=== PATIENT | female | born 1940 | race Caucasian/White ===

== ENCOUNTER 2020-03-24 15:48 | Inpatient (IN) ==
[2020-03-24] MEDS ORDERED: PANTOprazole 40 MG in SYRINGE 0 ML IV ONE (16:26)
[2020-03-24] MEDS ORDERED: FAMOTIDINE 20MG IV PUSH 20 MG/5 ML SYR IV STA (16:26)
[2020-03-24] MEDS ORDERED: ONDANSETRON INJ 2 MG/ML 2 ML VIAL IV STA ×2 (16:26→19:24)
[2020-03-24] MEDS ORDERED: SODIUM CHLORIDE 0.9% 1000ML 1,000 ML IV SCH (16:30)
--- NOTE | 2020-03-24 16:30 | Emergency Department Note ---
Impression & Plan Acute pancreatitis, Abdominal pain ED Provider Note NAME: EMY HERNANDEZ AGE: 79 SEX: F : 1940 ARRIVES VIA: Walk-In INFORMANT: Patient, ED PROVIDER(S): [place] John DO CHIEF COMPLAINT: Epigastric pain HPI: The patient is an 79-year-old female who presented to the emergency department for an evaluation of epigastric pain the patient noticed epigastric pain which radiates to the back which began earlier this morning after eating. Patient states that it has been constant. She states the pain is mostly in the upper abdomen but she also has some pain in her lower abdomen. She had one episode of loose bowel movement. She denies having any fever or cough. She notices nausea as well as vomiting. The patient has a history of pancreatitis in the past but she is unsure why she had pancreatitis. She denies any history of alcohol use. She was admitted to a hospital in [place] for a week and a half last year for similar complaints. The patient does not have a family doctor locally. She is visiting her brother from outside the area. She states her pain is moderate to severe at this time. ROS: See above HPI for pertinent positives & negatives. A total of 10 systems reviewed and were otherwise negative. PAST MEDICAL HISTORY: See Below PAST SURGICAL HISTORY: See Below FAMILY HISTORY: See Below SOCIAL HISTORY: See Below HOME MEDICATIONS: See Below ALLERGIES: See Below VITALS: See Below PHYSICAL EXAMINATION: GENERAL: Patient is awake alert in no acute distress patient is resting comfortably and showing no signs of anxiety EYES: The conjunctivae are clear. The pupils are round and reactive. EARS, NOSE, MOUTH AND THROAT: The nose is without any evidence of any deformity. Mucous membranes are moist. Tongue is midline. NECK: The neck is nontender and supple. RESPIRATORY: Normal respiratory effort is noted there is no evidence of wheezing rhonchi or rales CARDIOVASCULAR: Regular rate and rhythm noted there no murmurs rubs or gallops normal S1 normal S2. GASTROINTESTINAL: The abdomen is moderately distended and diffusely tender. There is epigastric tenderness to palpation which is moderate. MUSCULOSKELETAL/EXTREMITIES: There is no evidence of gross deformity full range of motion is noted in the hips and shoulders. SKIN: There is no obvious evidence of any rash. There are no petechiae, pallor or cyanosis noted. NEUROLOGIC: Patient is awake alert and oriented x3 strength is symmetric patellar reflexes are 2+ bilaterally MEDICAL DECISION MAKING: The patient is an 79-year-old female who presented to the emergency department for an evaluation of epigastric pain. The patient has a history of pancreatitis. The patient was treated with pain medication IV fluids proton pump inhibitor and H2 blockers in the emergency department. She was reevaluated multiple times. She continues to have very significant abdominal pain. I discussed the patient's laboratory and radiographic studies with her and her brother. I also [facility] have agreed to evaluate the patient in the emergency department for further management and disposition. Triage Nursing notes reviewed. Prior medical records reviewed Vital Signs: reviewed and remarkable for elevated blood pressure. Differential diagnosis: Etiologies such as appendicitis, diverticulitis, obstruction, inflammatory bowel disease, renal colic, PUD, biliary pathology, pancreatitis, mesenteric ischemia, aortic pathology, infections, genitourinary, UTI, perforated viscus, as well as others were entertained. ER treatment provided: See below Diagnostics interpreted by me: ECG: EKG was obtained in the emergency department. My interpretation is sinus bradycardia 57 bpm. LVH was noted by voltage criteria. There is no ectopy. No previous tracing was available for comparison. Cardiac Monitoring: An order was placed for continuous cardiac monitoring. The monitor shows a rate of 75 beats per minute with sinus rhythm. Laboratory studies: As stated above and show below. Imaging studies: See below Consultation(s): 1750: I discussed this case with Dr. Acosta who is [facility] They have agreed to evaluate the patient in the emergency department for further management and disposition. ED COURSE: Procedures: none PDMP:reviewed and no issues Critical Care: None Past Med/Surg History Medical History Pancreatitis Surgical History History of appendectomy Social History Smoking Status: Never smoker Hx Alcohol Use: No Hx Substance Use: No Preferred Language: Georgian Communication Ability: Effective Chargemaster Specialist Required: No Beliefs That Will Affect Care: None Current Living Situation: Spouse and Family Feels Safe at Home: Yes Allergies Allergies Allergy/AdvReac Type Severity Reaction Status Date / Time No Known Allergies Allergy Unverified 03/24/20 17:31 Home Meds Home Medications Medication Instructions Recorded Confirmed acetaminophen [Tylenol Extra 1,000 mg PO Q6H PRN 03/24/20 03/24/20 Strength] aspirin [Aspir-81] 81 mg PO DAILY 03/24/20 03/24/20 Results & Data (ED) Vital Signs Vital Signs - 24 hr 03/24/20 15:51 03/24/20 17:03 03/24/20 17:30 Temperature 37.1 C Temperature Source Oral Pulse Rate 82 65 Pulse Rate [Apical] 64 Pulse Rate from SpO2 Sensor 66 Respiratory Rate 16 24 22 Respiratory Depth Normal Blood Pressure 158/94 H 156/91 H Blood Pressure [Left Arm] 149/82 H Blood Pressure Mean 115 121 Blood Pressure Mean [Left Arm] 104 Pulse Oximetry 93 98 96 Oxygen Delivery Method Room Air Room Air Sepsis Recent Fever Within 48 Hours No Sepsis New/Unexplained Change in Mental Status No Sepsis Action Taken by Nursing No Action Required Home Medications Current Medication List: was personally reviewed by me Laboratory Data Attestation: I reviewed the patient's lab results. Result diagrams: 03/27/20 06:14 03/27/20 06:14 Lab Results 03/24/20 03/24/20 03/24/20 Range/Units 16:57 16:59 16:59 WBC 13.84 H (4.8-10.8) K/uL RBC 5.14 (4.2-5.4) M/uL Hgb 14.9 (12.0-16.0) g/dL Hct 44.4 (37-47) % MCV 86.4 (80-100) fL MCH 29.0 (25-34) pg MCHC 33.6 (32-36) g/dL RDW Std Deviation 46.4 H (36.4-46.3) fL RDW Coeff of Pedro 14.6 H (11.5-14.5) % Plt Count 238 (130-400) K/uL MPV 12.0 H (7.4-10.4) fL Immature Gran % (Auto) 0.3 % Neut % (Auto) 92.8 % Lymph % (Auto) 4.3 % [place] % (Auto) 2.5 % Eos % (Auto) 0.0 % Baso % (Auto) 0.1 % Neut # (Auto) 12.86 H (1.4-6.5) K/uL Lymph # (Auto) 0.59 L (1.2-3.4) K/uL [place] # (Auto) 0.34 (0.11-0.59) K/uL Eos # (Auto) 0.00 (0-0.5) K/uL Baso # (Auto) 0.01 (0-0.2) K/uL Immature Gran # (Auto) 0.04 H (0.00-0.02) K/uL PT 11.4 (9.0-12.0) Seconds INR 1.1 (0.9-1.1) APTT 26.2 (21.0-31.0) Seconds PTT Ratio 0.9 Sodium (136-145) mmol/L Potassium (3.5-5.1) mmol/L Chloride (98-107) mmol/L Carbon Dioxide (21-32) mmol/L Anion Gap (3-11) BUN (7-18) mg/dl Creatinine (0.6-1.2) mg/dl Est Cr Clr Drug Dosing ml/min Est GFR ( Amer) Est GFR (Non-Af Amer) BUN/Creatinine Ratio (10-20) Glucose (70-99) mg/dl Calcium (8.5-10.1) mg/dl Total Bilirubin (0.2-1) mg/dl AST (15-37) U/L ALT (12-78) U/L Alkaline Phosphatase (45-117) U/L Troponin I (0-0.045) ng/ml Total Protein (6.4-8.2) gm/dl Albumin (3.4-5.0) gm/dl Globulin (2.5-4.0) gm/dl Albumin/Globulin Ratio (0.9-2) Lipase (73-393) U/L Procalcitonin < 0.05 (0-0.5) ng/ml 03/24/20 Range/Units 16:59 WBC (4.8-10.8) K/uL RBC (4.2-5.4) M/uL Hgb (12.0-16.0) g/dL Hct (37-47) % MCV (80-100) fL MCH (25-34) pg MCHC (32-36) g/dL RDW Std Deviation (36.4-46.3) fL RDW Coeff of Pedro (11.5-14.5) % Plt Count (130-400) K/uL MPV (7.4-10.4) fL Immature Gran % (Auto) % Neut % (Auto) % Lymph % (Auto) % [place] % (Auto) % Eos % (Auto) % Baso % (Auto) % Neut # (Auto) (1.4-6.5) K/uL Lymph # (Auto) (1.2-3.4) K/uL [place] # (Auto) (0.11-0.59) K/uL Eos # (Auto) (0-0.5) K/uL Baso # (Auto) (0-0.2) K/uL Immature Gran # (Auto) (0.00-0.02) K/uL PT (9.0-12.0) Seconds INR (0.9-1.1) APTT (21.0-31.0) Seconds PTT Ratio Sodium 138 (136-145) mmol/L Potassium 3.7 (3.5-5.1) mmol/L Chloride 103 (98-107) mmol/L Carbon Dioxide 25 (21-32) mmol/L Anion Gap 11.0 (3-11) BUN 18 (7-18) mg/dl Creatinine 0.82 (0.6-1.2) mg/dl Est Cr Clr Drug Dosing 41.3 ml/min Est GFR ( Amer) 78.3 Est GFR (Non-Af Amer) 67.6 BUN/Creatinine Ratio 22.2 H (10-20) Glucose 161 H (70-99) mg/dl Calcium 9.8 (8.5-10.1) mg/dl Total Bilirubin 0.7 (0.2-1) mg/dl AST 31 (15-37) U/L ALT 28 (12-78) U/L Alkaline Phosphatase 78 (45-117) U/L Troponin I < 0.015 (0-0.045) ng/ml Total Protein 8.3 H (6.4-8.2) gm/dl Albumin 3.9 (3.4-5.0) gm/dl Globulin 4.4 H (2.5-4.0) gm/dl Albumin/Globulin Ratio 0.9 (0.9-2) Lipase 28750 H (73-393) U/L Procalcitonin (0-0.5) ng/ml Administered Medications Acetaminophen (Acetaminophen 325 Mg Tab) 650 mg PO Q8 RANDY Stop: 04/25/20 18:29 Last Admin: 03/27/20 06:09 Dose: 650 mg Documented by: [id number] Admin: 03/27/20 00:52 Dose: 650 mg Documented by: [id number] Admin: 03/26/20 18:43 Dose: 650 mg Documented by: [id number] Heparin Sodium (Porcine) (Heparin Sod 5,000 Unit/0.5 Ml Vial) 5,000 units SQ Q8 RANDY Stop: 04/24/20 13:59 Last Admin: 03/27/20 06:07 Dose: 5,000 units Documented by: [id number] Cosigned by: [id number] Admin: 03/26/20 21:06 Dose: 5,000 units Documented by: [id number] Cosigned by: [id number] Admin: 03/26/20 14:32 Dose: 5,000 units Documented by: [id number] Cosigned by: [id number] Admin: 03/26/20 06:35 Dose: 5,000 units Documented by: [id number] Cosigned by: [id number] Admin: 03/25/20 23:04 Dose: 5,000 units Documented by: [id number] Cosigned by: [id number] Admin: 03/25/20 13:15 Dose: Not Given Documented by: [id number] Lactated Ringer's (Lr) 1,000 mls @ 125 mls/hr IV .Q8H RANDY Stop: 04/23/20 21:59 Last Admin: 03/27/20 10:00 Dose: 125 mls/hr Documented by: [id number] Infusion: 03/27/20 09:24 Dose: 125 mls/hr Documented by: [id number] Admin: 03/27/20 01:24 Dose: 125 mls/hr Documented by: [id number] Infusion: 03/27/20 01:24 Dose: 125 mls/hr Documented by: [id number] Admin: 03/26/20 18:44 Dose: 125 mls/hr Documented by: [id number] Infusion: 03/26/20 17:45 Dose: 125 mls/hr Documented by: [id number] Admin: 03/26/20 09:45 Dose: 125 mls/hr Documented by: [id number] Infusion: 03/26/20 09:45 Dose: 125 mls/hr Documented by: [id number] Admin: 03/26/20 01:58 Dose: 125 mls/hr Documented by: [id number] Infusion: 03/26/20 01:54 Dose: 125 mls/hr Documented by: [id number] Admin: 03/25/20 17:54 Dose: 125 mls/hr Documented by: [id number] Infusion: 03/25/20 17:10 Dose: 125 mls/hr Documented by: [id number] Admin: 03/25/20 09:10 Dose: 125 mls/hr Documented by: [id number] Infusion: 03/25/20 09:09 Dose: 125 mls/hr Documented by: [id number] Admin: 03/24/20 22:08 Dose: 125 mls/hr Documented by: [id number] Pantoprazole Sodium 40 mg/ (Syringe) 10 mls @ 5 mls/min IV DAILY RANDY Stop: 03/29/20 09:01 Last Admin: 03/27/20 08:16 Dose: 5 mls/min Documented by: [id number] Admin: 03/26/20 09:45 Dose: 5 mls/min Documented by: [id number] Ondansetron HCl 8 mg/ Dextrose 54 mls @ 216 mls/hr IV Q8H RANDY Stop: 04/25/20 10:59 Last Infusion: 03/27/20 04:05 Dose: 0 mls/hr Documented by: [id number] Admin: 03/27/20 03:49 Dose: 216 mls/hr Documented by: [id number] Infusion: 03/26/20 20:09 Dose: 0 mls/hr Documented by: [id number] Admin: 03/26/20 18:49 Dose: 216 mls/hr Documented by: [id number] Infusion: 03/26/20 12:12 Dose: 0 mls/hr Documented by: [id number] Admin: 03/26/20 11:49 Dose: 216 mls/hr Documented by: [id number] Morphine Sulfate (Morphine Sulfate 2 Mg/Ml Carp) 2 mg IV Q2H PRN PRN Reason: Pain Stop: 04/07/20 21:50 Last Admin: 03/27/20 10:03 Dose: 2 mg Documented by: [id number] Admin: 03/25/20 13:15 Dose: 2 mg Documented by: [id number] Admin: 03/25/20 04:54 Dose: 2 mg Documented by: [id number] Admin: 03/25/20 00:55 Dose: 2 mg Documented by: [id number] Admin: 03/24/20 22:13 Dose: 2 mg Documented by: [id number] Discontinued Medications Sodium Chloride (Nss 1000ml) 1,000 mls @ 999 mls/hr IV .Q1H1M RANDY Stop: 03/24/20 17:30 Last Infusion: 03/24/20 17:57 Dose: 0 mls/hr Documented by: [id number] Admin: 03/24/20 16:56 Dose: 999 mls/hr Documented by: [id number] Famotidine (Pepcid 20mg Iv Push) 20 mg in 5 mls @ 2.5 mls/min IV NOW STA Stop: 03/24/20 16:27 Last Admin: 03/24/20 17:01 Dose: 2.5 mls/min Documented by: [id number] Pantoprazole Sodium 40 mg/ (Syringe) 10 mls @ 5 mls/min IV NOW ONE Stop: 03/24/20 16:27 Last Admin: 03/24/20 17:47 Dose: 5 mls/min Documented by: [id number] Pantoprazole Sodium 40 mg/ (Syringe) 10 mls @ 5 mls/min IV NOW ONE Stop: 03/25/20 14:31 Last Admin: 03/25/20 14:40 Dose: 5 mls/min Documented by: [id number] Morphine Sulfate (Morphine Sulfate 4 Mg/Ml 1 Ml Carp\Vial) 4 mg IV Q30M PRN PRN Reason: Pain Stop: 04/07/20 16:25 Last Admin: 03/24/20 19:36 Dose: 4 mg Documented by: [id number] Admin: 03/24/20 16:59 Dose: 4 mg Documented by: [id number] Morphine Sulfate (Morphine Sulfate 2 Mg/Ml Carp) 2 mg IV NOW STA Stop: 03/26/20 18:21 Last Admin: 03/26/20 18:42 Dose: 2 mg Documented by: [id number] Ondansetron HCl (Ondansetron Inj 2 Mg/Ml 2 Ml Vial) 4 mg IV NOW STA Stop: 03/24/20 16:27 Last Admin: 03/24/20 16:58 Dose: 4 mg Documented by: [id number] Ondansetron HCl (Ondansetron Inj 2 Mg/Ml 2 Ml Vial) 4 mg IV Q6H PRN PRN Reason: Nausea Stop: 04/23/20 19:05 Last Admin: 03/24/20 22:00 Dose: 4 mg Documented by: [id number] Ondansetron HCl (Ondansetron Inj 2 Mg/Ml 2 Ml Vial) 4 mg IV NOW STA Stop: 03/24/20 19:25 Last Admin: 03/24/20 19:36 Dose: 4 mg Documented by: [id number] Imaging Data Radiologist's Impression: XR chest 1V portable HISTORY: 79 years-old Female Chest Pain . Acute atypical chest pain COMPARISON: None TECHNIQUE: Portable AP view of the chest FINDINGS: Mild eventration of the right hemidiaphragm. Cardiomediastinal and hilar silhouettes are within normal limits. Calcified plaque of the thoracic aortic arch. No pneumothorax, pleural effusion, airspace consolidation or overt pulmonary edema. Bones of the chest appear grossly intact. IMPRESSION: No acute process. ACT 112: Negative or not required by law. The above report was generated using voice recognition software. It may contain grammatical, syntax or spelling errors. Electronically signed by: Simba Villeda M.D. 03/24/2020 4:40 PM Dictated: 03/24/20 1640 Transcribed: 03/24/20 [address] WITHOUT CONTRAST CT DOSE: 245.63 mGy.cm HISTORY: Acute vomiting with bilateral flank pain flank pain, vomiting TECHNIQUE: Multiaxial CT images of the abdomen and pelvis were performed without contrast. A dose lowering technique was utilized adhering to the principles of ALARA. COMPARISON STUDY: Chest radiograph of same day FINDINGS: Minimal linear scarring/atelectasis of the inferior segment lingula. Lung bases are otherwise generally clear. There is no pneumatosis or pneumoperitoneum. Coronary artery calcifications. The imaged inferior cardiac chambers are otherwise unremarkable. The unenhanced spleen, and adrenal glands are unremarkable. Hepatic steatosis. The gallbladder is within normal limits. Renal sinus cysts are noted involving the bilateral kidneys. Decompressed urinary bladder with mild wall thickening. Hysterectomy. No adnexal mass lesions. Calcified plaque of the abdominal aorta. No aneurysm. There is moderate interstitial and peripancreatic stranding with edema and free fluid. Free fluid tracks along the inferior mesentery into the right pericolic gutter. Trace layering dependent free pelvic fluid. No drainable fluid collection, pancreatic or biliary ductal dilation. Tiny hiatal hernia. Mild wall thickening the duodenum is likely reactive. Small duodenal diverticulum. No bowel obstruction. Colonic diverticulosis without acute diverticulitis. The appendix is reportedly surgically absent. Soft tissues are unremarkable. The bones appear intact. Degenerative changes of the spine, pelvis and hips. Grade 1 anterolisthesis L4 on L5 secondary to long-standing facet arthrosis. IMPRESSION: 1. Moderate acute pancreatitis. No pancreatic or biliary ductal dilation identified. 2. Unremarkable gallbladder without cholelithiasis. 3. Colonic diverticulosis without acute diverticulitis. 4. Mild hepatic steatosis. 5. Additional findings as above. ACT 112: Negative or not required by law. The above report was generated using voice recognition software. It may contain grammatical, syntax or spelling errors. Electronically signed by: Simba Villeda M.D. 03/24/2020 5:33 PM Dictated: 03/24/201727 Transcribed: 03/24/201727 Prescription Drug Monitoring [place] Drug Monitoring Program reviewed and no issues identified Blood Pressure Blood Pressure Findings: Elevated blood pressure Blood Pressure Disposition: further management by hospitalist Discharge Plan Visit Data Chief Complaint: Abdominal Pain Stated Complaint: ABD PAIN, VOMITING ED Provider: [place] John Discharge Problem: Acute pancreatitis, Abdominal pain Patient Disposition: Admitted As Inpatient Condition: Good Discharge Instructions Interventions: ED Discharge Assessment Last Done: 03/24/20 21:14 Discharge Problem: Acute pancreatitis Qualifiers: Pancreatitis type: unspecified pancreatitis type Acute pancreatitis complication: unspecified Qualified Code(s): K85.90 - Acute pancreatitis without necrosis or infection, unspecified Abdominal pain Qualifiers: Abdominal location: epigastric Qualified Code(s): R10.13 - Epigastric pain
--- NOTE | 2020-03-24 16:41 | XRay Report ---
XR chest 1V portable HISTORY: 79 years-old Female Chest Pain . Acute atypical chest pain COMPARISON: None TECHNIQUE: Portable AP view of the chest FINDINGS: Mild eventration of the right hemidiaphragm. Cardiomediastinal and hilar silhouettes are within marli l limits. Calcified plaque of the thoracic aortic arch. No pneumothorax, pleural effusion, airspace c onsolidation or overt pulmonary edema. Bones of the chest appear grossly intact. IMPRESSION: No acute process. ACT 112: Negative or not required by law. The above report was generated using voice recognition software. It may contain grammatical, syntax o r spelling errors. Electronically signed by: Simba Villeda M.D. 03/24/2020 4:40 PM
[2020-03-24] MEDS: MoRPHine SULFATE 4 MG/ML 1 ML CARP\\VIAL IV PRN ×2 (16:59→19:36)
[2020-03-24 17:18] LABS: Basophils # (auto) 0.01 K/uL (0-0.2); Basophils % (auto) 0.1 %; Hematocrit (blood only) 44.4 % (37-47); Hemoglobin 14.9 g/dL (12.0-16.0); Immature Granulocytes # (auto) 0.04 K/uL (0.00-0.02); Immature Granulocytes % (auto) 0.3 %; Lymphocytes # (auto) 0.59 K/uL (1.2-3.4); Lymphocytes % (auto) 4.3 %; Mean Corpuscular Hgb Conc 33.6 g/dL (32-36); Mean Corpuscular Volume 86.4 fL (80-100); Monocytes # (auto) 0.34 K/uL (0.11-0.59); Monocytes % (auto) 2.5 %; Neutrophils # (auto) 12.86 K/uL (1.4-6.5); Neutrophils % (auto) 92.8 %; Platelet Count 238 K/uL (130-400); RDW Coefficient of Variation 14.6 % (11.5-14.5); RDW Standard Deviation 46.4 fL (36.4-46.3); Red Blood Count 5.14 M/uL (4.2-5.4); White Blood Count 13.84 K/uL (4.8-10.8)
[2020-03-24 17:29] LABS: INR 1.1 (0.9-1.1); Partial Thromboplastin Ratio 0.9; Partial Thromboplastin Time 26.2 Seconds (21.0-31.0); Prothrombin Time 11.4 Seconds (9.0-12.0)
[2020-03-24 17:34] LABS: Alanine Aminotransferase 28 U/L (12-78); Albumin Level 3.9 gm/dl (3.4-5.0); Aspartate Aminotransferase 31 U/L (15-37); BUN Creatinine Ratio 22.2 (10-20); Blood Urea Nitrogen 18 mg/dl (7-18); Calcium 9.8 mg/dl (8.5-10.1); Carbon Dioxide 25 mmol/L (21-32); Chloride 103 mmol/L (98-107); Creatinine Clr Calc Pharmacy 41.3 ml/min; Est GFR (African American) 78.3; Est GFR (Non-African American) 67.6; Glucose 161 mg/dl (70-99); Potassium 3.7 mmol/L (3.5-5.1); Sodium 138 mmol/L (136-145)
--- NOTE | 2020-03-24 17:34 | CT Scan Report ---
ABDOMEN AND PELVIS CT WITHOUT CONTRAST CT DOSE: 245.63 mGy.cm HISTORY: Acute vomiting with bilateral flank pain flank pain, vomiting TECHNIQUE: Multiaxial CT images of the abdomen and pelvis were performed without contrast. A dose lo wering technique was utilized adhering to the principles of ALARA. COMPARISON STUDY: Chest radiograph of same day FINDINGS: Minimal linear scarring/atelectasis of the inferior segment lingula. Lung bases are otherwise general ly clear. There is no pneumatosis or pneumoperitoneum. Coronary artery calcifications. The imaged inf erior cardiac chambers are otherwise unremarkable. The unenhanced spleen, and adrenal glands are unre markable. Hepatic steatosis. The gallbladder is within normal limits. Renal sinus cysts are noted involving the bilateral kidneys. Decompressed urinary bladder with mild w all thickening. Hysterectomy. No adnexal mass lesions. Calcified plaque of the abdominal aorta. No an eurysm. There is moderate interstitial and peripancreatic stranding with edema and free fluid. Free f luid tracks along the inferior mesentery into the right pericolic gutter. Trace layering dependent fr ee pelvic fluid. No drainable fluid collection, pancreatic or biliary ductal dilation. Tiny hiatal hernia. Mild wall thickening the duodenum is likely reactive. Small duodenal diverticulum . No bowel obstruction. Colonic diverticulosis without acute diverticulitis. The appendix is reported ly surgically absent. Soft tissues are unremarkable. The bones appear intact. Degenerative changes of the spine, pelvis and hips. Grade 1 anterolisthesis L4 on L5 secondary to long-standing facet arthro sis. IMPRESSION: 1. Moderate acute pancreatitis. No pancreatic or biliary ductal dilation identified. 2. Unremarkable gallbladder without cholelithiasis. 3. Colonic diverticulosis without acute diverticulitis. 4. Mild hepatic steatosis. 5. Additional findings as above. ACT 112: Negative or not required by law. The above report was generated using voice recognition software. It may contain grammatical, syntax o r spelling errors. Electronically signed by: Simba Villeda M.D. 03/24/2020 5:33 PM
[2020-03-24 17:39] LABS: Albumin Globulin Ratio 0.9 (0.9-2); Alkaline Phosphatase 78 U/L (45-117); Bilirubin,Total 0.7 mg/dl (0.2-1); Globulin 4.4 gm/dl (2.5-4.0); Lipase 16252 U/L (73-393); Total Protein 8.3 gm/dl (6.4-8.2); Troponin I < 0.015 ng/ml (0-0.045)
--- NOTE | 2020-03-24 18:47 | History & Physical Report ---
Date of Service March 24, 2020 Assessment & Plan (1) Acute pancreatitis: Admission and Anticipated Discharge Date Admission Date: Epigastric pain in an 79 yo female with H/O pancreatitis Elevated lipase. Still has gallbladder. Unsure of previous cause. But she denies stones and alcoholism. May benefit from MRCP or ERCP, however, will monitor her clinically for now. As she is from [place], depending on how quickly she resolves, she may have further testing her or back home. Cont. IVF and place NPO. Will check Lipase in AM. DVT proph: heparin History of Present Illness Chief Complaint: Abdominal pain Primary Care Provider: KAYLIN DOE The patient is a 79 yo female with h/o of 2 bouts of pancreatitis in the past presents to the ED with epigastric pain. \Patient reports this pain began this AM and was 10/10. it was sharp, radiated to the back. The pain did not subside which prompted her to come to the ER. In the ER, her pain improved to a 7/10, as she received IV fluid. Patient is currently nauseous. Patient is traveling from [place] to visit her brother who lives in [place] Allergies Allergy/AdvReac Type Severity Reaction Status Date / Time No Known Allergies Allergy Unverified 03/24/20 17:31 Home Medications Home Medications Medication Instructions Recorded Confirmed Type acetaminophen [Tylenol Extra 1,000 mg PO Q6H PRN 03/24/20 03/24/20 History Strength] aspirin [Aspir-81] 81 mg PO DAILY 03/24/20 03/24/20 History Past Med/Surg History Medical History Pancreatitis Surgical History History of appendectomy Social History Smoking Status: Never smoker Hx Alcohol Use: No Hx Substance Use: No Preferred Language: Slovenian Communication Ability: Effective Newborn Hearing Screener Required: No Beliefs That Will Affect Care: None Current Living Situation: Spouse and Family Feels Safe at Home: Yes Review of Systems Constitutional: no fever and no sweats Eyes: no diplopia Ear, Nose, Mouth, Throat: no ear pain and no ear trauma Respiratory: no cough and no change in sputum Cardiovascular: no chest pain with activity and no dyspnea at rest Gastrointestinal: + abdominal pain and + nausea Musculoskeletal: no radicular pain and no loss of height Integumentary: no rash and no lesions Neurologic: no gait abnormality and no localized weakness Psychiatric: no behavioral changes Endocrine: no fatigue and no polyphagia Hematologic / Lymphatic: no lymphadenopathy Physical Exam Constitutional: WD/WN, vitals as above well developed Eyes: PERRL, conjunctivae normal, anicteric sclerae ENMT: external ear and nose normal, oropharynx normal Neck: trachea midline, no thyromegaly Respiratory: normal respiratory effort, lungs clear to auscultation Cardiovascular: RRR, no murmur, no edema Gastrointestinal (Abdomen): Inspection/Auscultation: abdomen normal to inspection and normal bowel sounds Percussion/Palpation: + abdomen tender (epigastric region) and abdomen soft Musculoskeletal: no cyanosis or clubbing, extremities motor strength 5/5 Skin: no rashes, warm and dry Neurologic: PERRL, EOMI, accommodation nl, no face palsy, no dysarthria Psychiatric: A+Ox3, euthymic affect Lymphatic: no cervical or axillary lymphadenopathy Results & Data Results & Data ([facility]) Vital Signs (Past 12 Hours) Vital Signs Temp Pulse Pulse Resp BP BP Pulse Ox 03/24/20 18:30 67 161/91 H 96 03/24/20 18:00 60 20 160/79 H 94 03/24/20 17:30 65 22 156/91 H 96 03/24/20 17:03 64 24 149/82 H 98 03/24/20 15:51 37.1 C 82 16 158/94 H 93 PG Care Time/CCT Total # of Minutes Spent Total Time Spent with Patient: Total time spent is greater than 50% in coordination of care (as documented) at patient's floor/unit and/or counseling patient: Coding Level of Care Code 73589 Initial Inpt Care Lvl 3 Diagnoses Acute pancreatitis K85.90 Acute pancreatitis complication: unspecified Pancreatitis type: unspecified pancreatitis type (1) Acute pancreatitis Acute pancreatitis complication: unspecified Pancreatitis type: unspecified pancreatitis type Qualified Code(s): K85.90 - Acute pancreatitis without necrosis or infection, unspecified
[2020-03-24] MEDS ORDERED: ONDANSETRON INJ 2 MG/ML 2 ML VIAL IV PRN (19:06)
[2020-03-24] MEDS ORDERED: ACETAMINOPHEN 325 MG TAB PO PRN (19:06)
[2020-03-24] MEDS ORDERED: MoRPHine SULFATE 4 MG/ML 1 ML CARP\\VIAL IV PRN (21:51)
[2020-03-24] MEDS ORDERED: PNEUMOCOCCAL ADMINISTRATION CHARGE ONE (21:56)
[2020-03-24] MEDS ORDERED: PNEUMOCOCCAL POLYSACCHARIDES 25 MCG/0.5 ML VIAL/SYR IM ONE (21:56)
[2020-03-24] MEDS: LACTATED RINGER'S 1,000 ML IV SCH (22:08)
[2020-03-24] MEDS: MoRPHine SULFATE 2 MG/ML CARP IV PRN (22:13)
[2020-03-25] MEDS: MoRPHine SULFATE 2 MG/ML CARP IV PRN ×3 (00:55→13:15)
[2020-03-25 07:51] LABS: Basophils # (auto) 0.01 K/uL (0-0.2); Basophils % (auto) 0.1 %; Hematocrit (blood only) 41.7 % (37-47); Hemoglobin 14.2 g/dL (12.0-16.0); Immature Granulocytes # (auto) 0.03 K/uL (0.00-0.02); Immature Granulocytes % (auto) 0.2 %; Lymphocytes # (auto) 0.64 K/uL (1.2-3.4); Lymphocytes % (auto) 5.1 %; Mean Corpuscular Hemoglobin 29.2 pg (25-34); Mean Corpuscular Hgb Conc 34.1 g/dL (32-36); Mean Corpuscular Volume 85.6 fL (80-100); Mean Platelet Volume 11.6 fL (7.4-10.4); Monocytes # (auto) 0.66 K/uL (0.11-0.59); Monocytes % (auto) 5.3 %; Neutrophils # (auto) 11.21 K/uL (1.4-6.5); Neutrophils % (auto) 89.3 %; Platelet Count 205 K/uL (130-400); RDW Coefficient of Variation 14.6 % (11.5-14.5); RDW Standard Deviation 45.4 fL (36.4-46.3); Red Blood Count 4.87 M/uL (4.2-5.4); White Blood Count 12.55 K/uL (4.8-10.8)
[2020-03-25 08:31] LABS: Albumin Level 3.3 gm/dl (3.4-5.0); BUN Creatinine Ratio 30.2 (10-20); Calcium 8.8 mg/dl (8.5-10.1); Creatinine Clr Calc Pharmacy 53.7 ml/min; Est GFR (African American) 98.2; Est GFR (Non-African American) 84.7; Potassium 3.7 mmol/L (3.5-5.1)
[2020-03-25 08:34] LABS: Albumin Globulin Ratio 0.8 (0.9-2); Bilirubin,Total 0.6 mg/dl (0.2-1); Globulin 4.2 gm/dl (2.5-4.0); Total Protein 7.5 gm/dl (6.4-8.2)
[2020-03-25] MEDS: LACTATED RINGER'S 1,000 ML IV SCH ×2 (09:10→17:54)
[2020-03-25 10:33] LABS: Estimated Average Glucose 123 mg/dl; Hemoglobin A1C 5.9 % (4.5-5.6)
[2020-03-25] MEDS: HEPARIN SOD 5,000 UNIT/0.5 ML VIAL SQ SCH ×2 (13:15→23:04)
--- NOTE | 2020-03-25 13:52 | Medical Student Progress Note ---
Date of Service March 25, 2020 Assessment & Plan (1) Acute pancreatitis: Acute pancreatitis complication: unspecified Pancreatitis type: unspecified pancreatitis type Qualified Code(s): K85.90 - Acute pancreatitis without necrosis or infection, unspecified Admission and Anticipated Discharge Date Admission Date: March 24, 2020 1) Pancreatis NPO status, continue today, revaluate tomorrow and will consider advancement of diet as tolerated. - Continue IVF LR 125 ml - Continue pain control -Morphine 2 mg IV Q2H PRN for pain -Morphine 4 mg IV Q4H PRN for severe pain - Zofran 8 mg Q6H PRN for nausea - IV Protonix 40 mg for nausea DVT Prophalax: Heparin 5000 SQ Q8hr F/E/N: NPO Dispos: Tele, consider advancement of diet tomorrow FULL CODE Supervising Attestation Patient seen and examined with PGY-1 Dr. Ye and medical student Marilynn Aguilar. Agree with history, physical exam, assessment and plan of care as outlined. In brief, Ms. Knott is a healthy 79 year old female with prior history of pancreatitis admitted with upper abdominal pain, found to have elevated lipase and pierpancreatic stranding and edema on CT. Today, she continues to have epigastric and upper abdominal pain that radiates to the back. She reports some bloating sensation, an acid taste in her throat and nausea. She has not had any vomiting since admission. Denies fevers, chills. Denies chest pain, dyspnea, diarrhea. VS, labs, and imaging reviewed. Nursing notes reviewed. On exam, she is ill appearing. Heart with regular rate and rhythm. 2/6 systolic murmur. No rub or gallop. No LE edema. Lungs are clear to auscultation in all lung davison. Good air movement. No wheezes, ronchi or rales. Abdomen with hypoactive bowel sounds. + Guarding. No rebound. Tenderness in the RUQ, epigastric and LUQ. Labs significant for lipase of 16,252 on admission and a leukocytosis of 13.8. CT Abd/Pelvis with peripancreatic stranding with edema and free fluid, gallbladder present without cholelithiasis. 1. acute pancreatitis. improving. repeat lipase 3,862 and leukocytosis 12.5. NPO, sips and chips. LR @ 125/hr. Pain control with morphine 2mg or 4mg. Zofran 8mg q8h. Protonix. Dispo: pending clinical improvement. Subjective Pt is a 79 F with a PMH of two pancreatis episodes with diffuse upper abdominal pain radiating to the back accompanied by nausea and vomiting. Pt was visiting brother in [place] evening before admittance when she began to experiencing symptoms of nausea, vomiting, abdominal pain, and loose stools of orange color. Is a somewhat poor historian. At first she thought it was a stomach virus but decided to come to the ER when she recognized the pain radiating to the back as similar to her past pancreatitis. She describes the pain as a constant "sore" pressure, diffuse upper abdominal pain radiating to the back. 12/23. Endorses "sweats" and chills but without fever. She also mentions intermittent increased respiratory rate accompanied by nausea attacks. Pt had breakfast the morning of admittance. Denies bowel movements today. She is not on any daily medication and reports no other medical conditions. Her two other acute pancreatis episodes were in 2014 and 2017. Pt could not describe the instigating factor. Did follow up with GI pancreatic specialist. Review of Systems Constitutional: + chills, + sweats and + fatigue Ear, Nose, Mouth, Throat: + tinnitus and + hearing loss Gastrointestinal: + abdominal pain, + nausea and + vomiting Genitourinary: intermittent incontinence when she "waits too long" Physical Exam Constitutional: well developed and + acute distress Eyes: PERRL and normal accommodation ENMT: Ears: + hearing impairment Respiratory: normal respiratory effort, lungs clear to auscultation Cardiovascular: Rate/Rhythm: regular rate and regular rhythm Heart Sounds: normal S1, normal S2 and + murmur (systolic) Extremities: no pedal edema Gastrointestinal (Abdomen): Inspection/Auscultation: abdomen normal to inspection and + hypoactive bowel sounds; abdomen not distended + guarding. Tender in the epigastric, RUQ. Musculoskeletal: arthritic deformities of the fingers of the bilateral hands Skin: no rashes, warm and dry Neurologic: normal touch/pain/proprioception, CN's II-XI intact bilaterally, moves all extremities and awake Motor/Sensory: no tremor Psychiatric: Orientation: alert and oriented x 3 Results & Data ([facility]) Vital Signs (Past 12 Hours) Vital Signs Temp Pulse Pulse Resp BP BP Pulse Ox 03/25/20 11:34 36.3 C L 76 16 163/81 H 94 03/25/20 07:21 89 03/25/20 07:08 36.7 C 80 16 163/80 H 95 03/25/20 03:00 36.7 C 75 20 160/77 H 95
[2020-03-25] MEDS ORDERED: ONDANSETRON INJ 2 MG/ML 2 ML VIAL IV PRN (14:09)
[2020-03-25] MEDS ORDERED: ondansetron HCL 8 MG in DEXTROSE 5% 50 ML IV PRN (14:12)
[2020-03-25] MEDS ORDERED: PANTOprazole 40 MG in SYRINGE 0 ML IV ONE (14:30)
--- NOTE | 2020-03-25 19:08 | Electrocardiogram Report ---
Test Reason : Blood Pressure : / mmHG Vent. Rate : 057 BPM Atrial Rate : 057 BPM P-R Int : 202 ms QRS Dur : 072 ms QT Int : 452 ms P-R-T Axes : 051 -17 050 degrees QTc Int : 439 ms Sinus bradycardia Minimal voltage criteria for LVH, may be normal variant possible Inferior infarct , age undetermined Nonspecific ST abnormality Abnormal ECG No previous ECGs available Confirmed by Christo Wang ([id number]) on 03/25/2020 7:07:49 PM Referred By: KAYLIN DOE Confirmed By:Stephon Wang
[2020-03-26] MEDS: LACTATED RINGER'S 1,000 ML IV SCH ×3 (01:58→18:44)
[2020-03-26 05:50] LABS: Hematocrit (blood only) 40.1 % (37-47); Hemoglobin 13.5 g/dL (12.0-16.0); Immature Granulocytes # (auto) 0.03 K/uL (0.00-0.02); Immature Granulocytes % (auto) 0.2 %; Lymphocytes # (auto) 0.68 K/uL (1.2-3.4); Mean Corpuscular Hemoglobin 28.8 pg (25-34); Mean Corpuscular Hgb Conc 33.7 g/dL (32-36); Mean Corpuscular Volume 85.5 fL (80-100); Mean Platelet Volume 11.6 fL (7.4-10.4); Monocytes % (auto) 6.5 %; Neutrophils # (auto) 15.14 K/uL (1.4-6.5); Neutrophils % (auto) 89.3 %; Platelet Count 203 K/uL (130-400); RDW Coefficient of Variation 15.1 % (11.5-14.5); Red Blood Count 4.69 M/uL (4.2-5.4); White Blood Count 16.95 K/uL (4.8-10.8)
[2020-03-26 06:18] LABS: Calcium 8.9 mg/dl (8.5-10.1); Creatinine Clr Calc Pharmacy 70.5 ml/min; Est GFR (African American) 107.4; Est GFR (Non-African American) 92.6; Potassium 3.9 mmol/L (3.5-5.1)
[2020-03-26] MEDS: HEPARIN SOD 5,000 UNIT/0.5 ML VIAL SQ SCH ×3 (06:35→21:06)
[2020-03-26] MEDS: PANTOprazole 40 MG in SYRINGE 0 ML IV SCH (09:45)
[2020-03-26] MEDS: ondansetron HCL 8 MG in DEXTROSE 5% 50 ML IV SCH ×2 (11:49→18:49)
--- NOTE | 2020-03-26 15:44 | Medical Student Progress Note ---
Date of Service March 26, 2020 Assessment & Plan (1) Acute pancreatitis: Acute pancreatitis complication: unspecified Pancreatitis type: unspecified pancreatitis type Qualified Code(s): K85.90 - Acute pancreatitis without necrosis or infection, unspecified Admission and Anticipated Discharge Date Admission Date: Pt is a 79 F with a PMH of two acute pancreatitis episodes presenting with upper abdominal pain radiating to the back with acute pancreatitis diagnosis. When I recognized lack of utilization of pain or nausea medications, I re iterated PRN status and suggested Tylenol. - IVF 125 cc Q8H - Pain -Morphine 2 mg IV Q2N PRN -Acetaminophen 650 PO Q4N PRN - Severe Pain -Morphine 4 mg IV Q4N PRN - Zofran updated to Daily Schedule DVT Prophy: Heparin 5000 SQ Q8 RANDY Full Code F/E/N: NPO, ice chips Dispo: Telemetry March 24, 2020 Supervising Attestation Resident attestation Patient seen and examined with Marilynn Aguilar, medical student, and Dr. Eason, attending MD. Case was thoroughly discussed and I agree with documentation as noted above and below with the following exceptions/additions noted: - Celeste Knott is an 79 yo female with PMHx of OA and pancreatitis x2 who presented to [facility] with acute abdominal pain and nausea. Diagnosed with acute pancreatitis. Pt with no hx of alcohol abuse. No gallstones on imaging. - Patient made NPO, LR rate 125 cc/hr q8h, zofran prn for nausea control, morphine prn for pain control. - On evaluation today, patient complaining of persistent abdominal pain and nausea. Noted that she has not been asking for pain/nausea medications. - On exam today: resting comfortably in bed but appears nauseated, lungs CTA b/l, heart regular rate and rhythm, 2/6 ERIC, abdomen with diffuse TTP and involuntary guarding, hypoactive BS, AO x3 but patient difficult with thought processing and holding conversation. - Labs: pt with persistent leukocytosis, downtrending lipase (initially 25970 --> 3862 --> 1584 today), BMP stable - Plan for acute pancreatitis: will change zofran to scheduled (zofran 8mg IV q6h) and tylenol to scheduled instead of prn; will give one dose of morphine 2mg IV now; pending improvement of sxs tomorrow morning, can consider starting to advance diet tomorrow (would start with clear liquid diet for breakfast). Continue IV hydration with LR. Continue to monitor CBC, BMP, and lipase qAM Attending attestation Pt seen and examined in concert with Dr. Briceno, Std Dr Aguilar. In agreement with the documented findings as noted in the resident documentation with any exceptions or additions as noted here. 79 y/o female h/o pancreatitis presenting with abdominal pain and nausea 2/2 pancreatitis Improvement of symptoms overall, but still with persistent nausea and diffuse abdominal pain. Does get relief from medication but doesn't request it. On examination, S1/S2 nl RRR no MCG. CTAB. Abd diffusely TTP worse in the epigastrium with BS +ve. Appears discomforted with visible nausea. AAOx3 but difficulty with focus/attention, likely 2/2 sx Pancreatitis - downtrended lipase and improving sx. Scheduled APAP and ondansetron. IV hydration. Start clear diet if symptoms controlled on scheduled medication. Else see resident documentation as noted. Subjective Pt was sleeping when entered the room. Pt reported no events overnight. Pain mildly reduced from yesterday: 4/10 was 5/10 yesterday. Still appeared nauseous but denied episodes of vomiting. Pt did not request any pain medication or zofran overnight. Her last dose of pain medication was morphine 2 mg IV at 1:15 pm yesterday. Pt states that she was not hungry. Review of Systems Constitutional: no fever and no chills +decreased appetite. Gastrointestinal: + abdominal pain and + nausea; no vomiting Physical Exam Constitutional: well developed Respiratory: normal respiratory effort, lungs clear to auscultation Cardiovascular: Rate/Rhythm: regular rate Heart Sounds: + murmur Gastrointestinal (Abdomen): Inspection/Auscultation: + hypoactive bowel sounds Neurologic: moves all extremities and awake Psychiatric: Orientation: alert and oriented x 3 Results & Data ([facility]) Vital Signs (Past 12 Hours) Vital Signs Temp Pulse Pulse Pulse Resp BP BP 03/26/20 15:13 37.2 C 79 16 160/85 H 03/26/20 11:48 36.3 C L 84 20 157/79 H 03/26/20 07:31 36.5 C 84 18 152/79 H 03/26/20 07:00 77 Pulse Ox 03/26/20 15:13 96 03/26/20 11:48 94 03/26/20 07:31 92 03/26/20 07:00 Laboratory Results 03/26/20 03/26/20 Range/Units 05:28 05:28 WBC 16.95 H (4.8-10.8) K/uL RBC 4.69 (4.2-5.4) M/uL Hgb 13.5 (12.0-16.0) g/dL Hct 40.1 (37-47) % MCV 85.5 (80-100) fL MCH 28.8 (25-34) pg MCHC 33.7 (32-36) g/dL RDW Std Deviation 47.0 H (36.4-46.3) fL RDW Coeff of Pedro 15.1 H (11.5-14.5) % Plt Count 203 (130-400) K/uL MPV 11.6 H (7.4-10.4) fL Immature Gran % (Auto) 0.2 % Neut % (Auto) 89.3 % Lymph % (Auto) 4.0 % Beadle % (Auto) 6.5 % Eos % (Auto) 0.0 % Baso % (Auto) 0.0 % Neut # (Auto) 15.14 H (1.4-6.5) K/uL Lymph # (Auto) 0.68 L (1.2-3.4) K/uL Beadle # (Auto) 1.10 H (0.11-0.59) K/uL Eos # (Auto) 0.00 (0-0.5) K/uL Baso # (Auto) 0.00 (0-0.2) K/uL Immature Gran # (Auto) 0.03 H (0.00-0.02) K/uL Sodium 138 (136-145) mmol/L Potassium 3.9 (3.5-5.1) mmol/L Chloride 105 (98-107) mmol/L Carbon Dioxide 25 (21-32) mmol/L Anion Gap 8.0 (3-11) BUN 14 (7-18) mg/dl Creatinine 0.48 L (0.6-1.2) mg/dl Est Cr Clr Drug Dosing 70.5 ml/min Est GFR ( Amer) 107.4 Est GFR (Non-Af Amer) 92.6 BUN/Creatinine Ratio 28.0 H (10-20) Glucose 114 H (70-99) mg/dl Calcium 8.9 (8.5-10.1) mg/dl Lipase 1584 H (73-393) U/L Medications Administered Current Inpatient Medications Acetaminophen (Acetaminophen 325 Mg Tab) 650 mg PO Q4H PRN PRN Reason: pain/fever Stop: 04/23/20 19:05 Heparin Sodium (Porcine) (Heparin Sod 5,000 Unit/0.5 Ml Vial) 5,000 units SQ Q8 RANDY Stop: 04/24/20 13:59 Last Admin: 03/26/20 14:32 Dose: 5,000 units Documented by: Lactated Ringer's (Lr) 1,000 mls @ 125 mls/hr IV .Q8H RANDY Stop: 04/23/20 21:59 Last Admin: 03/26/20 09:45 Dose: 125 mls/hr Documented by: Pantoprazole Sodium 40 mg/ (Syringe) 10 mls @ 5 mls/min IV DAILY RANDY Stop: 03/29/20 09:01 Last Admin: 03/26/20 09:45 Dose: 5 mls/min Documented by: Ondansetron HCl 8 mg/ Dextrose 54 mls @ 216 mls/hr IV Q8H RANDY Stop: 04/25/20 10:59 Last Infusion: 03/26/20 12:12 Dose: Infused Documented by: Morphine Sulfate (Morphine Sulfate 2 Mg/Ml Carp) 2 mg IV Q2H PRN PRN Reason: Pain Stop: 04/07/20 21:50 Last Admin: 03/25/20 13:15 Dose: 2 mg Documented by: Morphine Sulfate (Morphine Sulfate 4 Mg/Ml 1 Ml Carp\Vial) 4 mg IV Q4H PRN PRN Reason: SeVERE pain Stop: 04/07/20 21:50
[2020-03-26] MEDS ORDERED: MoRPHine SULFATE 2 MG/ML CARP IV STA (18:20)
[2020-03-26] MEDS: ACETAMINOPHEN 325 MG TAB PO SCH (18:43)
[2020-03-27] MEDS: ACETAMINOPHEN 325 MG TAB PO SCH ×4 (00:52→21:35)
[2020-03-27] MEDS: LACTATED RINGER'S 1,000 ML IV SCH ×3 (01:24→17:20)
[2020-03-27] MEDS: ondansetron HCL 8 MG in DEXTROSE 5% 50 ML IV SCH ×3 (03:49→20:51)
[2020-03-27] MEDS: HEPARIN SOD 5,000 UNIT/0.5 ML VIAL SQ SCH ×3 (06:07→21:35)
--- NOTE | 2020-03-27 06:31 | Hospitalist Progress Note ---
Date of Service March 27, 2020 Assessment & Plan (1) Acute pancreatitis: 79 y/o F w/ hx pancreatitis x2 who presented w/ epigastric pain, later diagnosed as acute pancreatitis. acute pancreatitis - 03/24/20 CT abd/pelv w/o contrast: Moderate acute pancreatitis. No pancreatic or biliary ductal dilation identified. - hx appendectomy. has gallbladder - no hx etoh abuse. no gallstones on imaging - was previously at NPO, LR rate 125 cc/hr q8h, zofran prn for nausea control, morphine prn for pain control. - Zofran and Tylenol switched to scheduled since 03/26/20 evening - Labs: persistent leukocytosis, downtrending lipase (initially 13312 --> 3862 --> 1584 on 03/26/20), BMP wnl except for hypokalemia plan: advance diet to clears at lunch and reassess. decreased IVF to 80 cc/hr. switched from IV morphine PRN to PO oxycodone (5 mg for pain, 7.5 mg for severe pain) PRN. continue to monitor CBC, BMP. Aim for dispo tomorrow ([facility] and plans to temporarily stay w/ brother who lives more locally). update at 1503: patient feeling about same in terms of pain. tolerated soup and jello. advanced to low fat diet for dinner. elevated BPs, no hx HTN - mostly 150s-160s / 80s overnight. Elevated at 173/93 this AM. - likely from IVF in context of elderly patient plan: decreased IVF to 80 cc/hr as above. continue IVF tapering tomorrow. hypokalemia - 3.2 plan: 40 Meq K-rider repletion FEN/GI: 80 cc/hr LR. low fat diet DVT ppx: SQH code status: full dispo: med surg Admission and Anticipated Discharge Date Admission Date: March 24, 2020 Supervising Physician Co-Signing Physician Notes Attending attestation Pt seen and examined in concert with Dr. Siddiqui. In agreement with the documented findings as noted in the resident documentation with any exceptions or additions as noted here. Improving diffuse abdominal pain and nausea which are controlled with present medication regimen. Would be open to trial of clears for lunch. On examination, S1/S2 nl RRR no MCG. CTAB. Abd diffusely tender worse epigastrically but overal. improved. BS+ve Acute pancreatitis - taper IVF today and trial of PO clear diet. Transition pain control to PO oxycodone and then transition to SL ondansetron. Else see resident documentation as noted. Subjective Pain level improving. 2-3/10. bilat lower abd pain, wraps around back. worse on R. Review of Systems Review of Systems: Constitutional: Denies fever, chills Cardiovascular: Denies Chest pain Respiratory: Denies shortness of breath Gastrointestinal: Denies nausea, vomiting, constipation, diarrhea Genitourinary: Denies urinary symptoms including dysuria Musculoskeletal: Denies weakness Neurological: Denies headache, numbness, tingling, focal weakness Physical Exam Physical Exam: General: A&Ox3. NAD. Cooperative. HEENT: Atraumatic, normocephalic. EOMI. MMM. Pulm: CTAB. -wheezes, -rales, -rhonchi. Symmetrical chest rise. No respiratory distress. Cardiac: RRR, -mrg. Radial pulses intact and symmetrical. No LE Edema. Abdominal: Soft. Mild RLQ ttp. neg cva tenderness, mild discomfort MSK: no back ttp on R. No midline lumbar spinal ttp. Results & Data Results & Data ([facility]) Vital Signs (Past 12 Hours) Vital Signs Temp Pulse Pulse Pulse Resp BP Pulse Ox 03/27/20 03:26 37.0 C 78 20 153/82 H 91 03/27/20 02:11 73 03/26/20 23:00 36.7 C 85 18 159/74 H 93 03/26/20 20:02 37.0 C 88 18 161/87 H 94 Resident Activity Tracking Resident Involvement: Resident Care Provided Care Provided: Adult Hospital Medicine (1) Acute pancreatitis Acute pancreatitis complication: unspecified Pancreatitis type: unspecified pancreatitis type Qualified Code(s): K85.90 - Acute pancreatitis without necrosis or infection, unspecified
[2020-03-27 06:54] LABS: Hematocrit (blood only) 36.2 % (37-47); Hemoglobin 12.3 g/dL (12.0-16.0); Immature Granulocytes # (auto) 0.03 K/uL (0.00-0.02); Immature Granulocytes % (auto) 0.2 %; Lymphocytes % (auto) 6.9 %; Mean Corpuscular Hemoglobin 28.9 pg (25-34); Mean Corpuscular Volume 85.2 fL (80-100); Mean Platelet Volume 11.9 fL (7.4-10.4); Monocytes # (auto) 1.23 K/uL (0.11-0.59); Monocytes % (auto) 7.7 %; Neutrophils # (auto) 13.59 K/uL (1.4-6.5); Neutrophils % (auto) 85.2 %; Platelet Count 160 K/uL (130-400); RDW Coefficient of Variation 14.7 % (11.5-14.5); RDW Standard Deviation 45.7 fL (36.4-46.3); Red Blood Count 4.25 M/uL (4.2-5.4); White Blood Count 15.95 K/uL (4.8-10.8)
[2020-03-27 07:26] LABS: BUN Creatinine Ratio 27.9 (10-20); Calcium 8.4 mg/dl (8.5-10.1); Creatinine Clr Calc Pharmacy 73.6 ml/min; Est GFR (African American) 108.9; Potassium 3.2 mmol/L (3.5-5.1)
[2020-03-27] MEDS: PANTOprazole 40 MG in SYRINGE 0 ML IV SCH (08:16)
[2020-03-27] MEDS: MoRPHine SULFATE 2 MG/ML CARP IV PRN (10:03)
[2020-03-27] MEDS ORDERED: oxyCODONE HCL SOLN 5 MG/5 ML UDC PO PRN (12:29)
[2020-03-27] MEDS: POTASSIUM CHLORIDE / WTR 10 MEQ/100 ML PLCT IV SCH ×4 (13:26→17:15)
[2020-03-27] MEDS: oxyCODONE HCL SOLN 5 MG/5 ML UDC PO PRN (20:51)
[2020-03-28] MEDS: ondansetron HCL 8 MG in DEXTROSE 5% 50 ML IV SCH ×2 (05:05→12:23)
[2020-03-28] MEDS: LACTATED RINGER'S 1,000 ML IV SCH (05:05)
[2020-03-28] MEDS: ACETAMINOPHEN 325 MG TAB PO SCH ×3 (05:54→21:01)
[2020-03-28] MEDS: HEPARIN SOD 5,000 UNIT/0.5 ML VIAL SQ SCH ×3 (05:55→21:01)
[2020-03-28 06:01] LABS: Hematocrit (blood only) 35.3 % (37-47); Mean Corpuscular Hemoglobin 28.7 pg (25-34); Mean Corpuscular Volume 84.4 fL (80-100); Platelet Count 167 K/uL (130-400); RDW Coefficient of Variation 14.4 % (11.5-14.5); RDW Standard Deviation 44.6 fL (36.4-46.3); Red Blood Count 4.18 M/uL (4.2-5.4); White Blood Count 14.49 K/uL (4.8-10.8)
[2020-03-28 06:29] LABS: BUN Creatinine Ratio 22.2 (10-20); Calcium 8.2 mg/dl (8.5-10.1); Creatinine Clr Calc Pharmacy 89.1 ml/min; Potassium 3.4 mmol/L (3.5-5.1)
[2020-03-28] MEDS: PANTOprazole 40 MG in SYRINGE 0 ML IV SCH (07:13)
[2020-03-28] MEDS ORDERED: ONDANSETRON 4 MG OD TAB PO PRN (12:42)
--- NOTE | 2020-03-28 13:26 | Discharge Summary ---
Date of Service March 28, 2020 Admission HPI Per Admitting Provider The patient is a 79 yo female with h/o of 2 bouts of pancreatitis in the past presents to the ED with epigastric pain. \Patient reports this pain began this AM and was 10/10. it was sharp, radiated to the back. The pain did not subside which prompted her to come to the ER. In the ER, her pain improved to a 7/10, as she received IV fluid. Patient is currently nauseous. [place] from [place] to visit her brother who lives in [place] Admission Exam Per Admitting Provider Constitutional: WD/WN, vitals as above well developed Eyes: PERRL, conjunctivae normal, anicteric sclerae ENMT: external ear and nose normal, oropharynx normal Neck: trachea midline, no thyromegaly Respiratory: normal respiratory effort, lungs clear to auscultation Cardiovascular: RRR, no murmur, no edema Gastrointestinal (Abdomen): Inspection/Auscultation: abdomen normal to inspection and normal bowel sounds Percussion/Palpation: + abdomen tender (epigastric region) and abdomen soft Musculoskeletal: no cyanosis or clubbing, extremities motor strength 5/5 Skin: no rashes, warm and dry Neurologic: PERRL, EOMI, accommodation nl, no face palsy, no dysarthria Psychiatric: A+Ox3, euthymic affect Lymphatic: no cervical or axillary lymphadenopathy Principal Diagnosis Acute Pancreatitis Discharge Exam Constitutional WD/WN, vitals as above Respiratory normal respiratory effort, lungs clear to auscultation Cardiovascular RRR, no murmur, no edema Gastrointestinal (Abdomen) normal bowel sounds, soft, nontender, no hepatosplenomegaly Musculoskeletal no cyanosis or clubbing, extremities motor strength 5/5 Skin no rashes, warm and dry Discharge Data Allergies Allergy/AdvReac Type Severity Reaction Status Date / Time No Known Allergies Allergy Unverified 03/24/20 17:31 Consultations 03/24/20 17:49 ED Decision to Admit Stat Ordered Studies 03/24/20 16:26 CT abd pelvis wo con Stat Hospital Course (1) Acute pancreatitis: Ms. Knott is an 79 y/o F with history of pancreatitis x2 who presented to [facility] ED on 03/24/2020 with epigastric pain secondary to acute pancreatitis. Acute Pancreatitis - 03/24/20 CT abd/pelv w/o contrast: Moderate acute pancreatitis. No pancreatic or biliary ductal dilation identified. - hx appendectomy. has gallbladder - no hx of alcohol abuse. no gallstones on imaging - was started at NPO, LR rate 125 cc/hr q8h, zofran IV prn for nausea, morphine prn for pain control. - Patient did well in the hospital, pain was controlled with IV morphine, nausea was controlled with scheduled Zofran IV - Started liquid diet on 03/26, advanced to low-fat diet on 03/27, patient did well with diet and nausea continued to be controlled - Pain continued to be well-controlled with transition to Oxycodone 5 mg PO on 03/27 - IV fluids discontinued on 03/28 AM - patient was discharged on 03/28 in good, stable condition with Zofran 4 mg ODT Q4H PRN for nausea and Oxycodone 5 mg PO Q6H PRN for pain - she will follow up with her PCP after discharge Hypertensive without history of HTN - mostly 150s-160s / 80s - likely from IVF in context of elderly patient plan: decreased IVF to 80 cc/hr as above. continue IVF tapering tomorrow. Total Time Total Time Spent Total Time Spent (In Minutes): 30 minutes Total Time Includes: Examination of the Patient, Discharge Planning and Medication Reconciliation Discharge Plan Discharge Items Patient Disposition: Home - Self-Care Reason For Visit: PANCREATITIS Discharge Diagnosis: Acute Pancreatitis Condition on Discharge: Good Activity: Resume your previous activity Non-emergency contact: Primary Care Provider Call non-emergency contact if: you have any medication questions, your symptoms worsen, your pain is not controlled and you have a fever Follow-up/Referrals: Ness Yu MD [Primary Care Provider] - Diet: Low Fat Addtl Attending Provider Instructions: You were admitted to [facility] on 03/24/2020 for acute pancreatitis. You were started on IV fluids and given IV pain medications for the pancreatitis, and you were also placed on temporary bowel rest without a diet. After several days, you were able to be advanced to a liquid diet, and then further advanced to a low fat diet on 03/27. You tolerated the diet well without worsening nausea, vomiting or abdominal pain. Your abdominal pain was well-controlled with IV pain medications, and we transitioned you to oral pain medications on 03/27, which you tolerated well. Your IV fluids were stopped today (03/28) in the morning, and you will be discharged in good, stable condition today. You will be discharged with oral pain medications (Oxycodone) and oral anti-nausea medications (Zofran). You can take these medications as needed for the next several days, as your symptoms continue to improve. You should follow up with your PCP after discharge. Pending Studies at Discharge: No Stand-Alone Forms: [facility], Smoking Cessation Medications and DC Order Prescriptions: New ondansetron 4 mg Tablet,Disintegrating 4 mg PO Q4H PRN (Reason: nausea and vomiting) 5 Days Qty: 25 RF: 0 oxycodone 5 mg capsule 5 mg PO Q6H PRN (Reason: pain) Qty: 14 RF: 0 Continued aspirin [Aspir-81] 81 mg Tablet,Delayed Release (Dr/Ec) 81 mg PO DAILY RF: 0 acetaminophen [Tylenol Extra Strength] 500 mg Tablet 1,000 mg PO Q6H PRN (Reason: Pain) RF: 0 Discharge Orders: Discharge Order (Routine); Ordered 03/28/20 Ordered By: Elliott Pires Admission Data Admit Date/Time: 03/24/20 20:50 Attending Provider: Nader Eason Admit Provider: Kelly Greenwood Primary Care Provider: Ness Yu Other Providers: Flavio Acosta Other Interventions: Discharge Summary Assessment (RN) Last Done: 03/28/20 13:53 Supervising Physician Co-Signing Physician Notes Attending attestation Pt seen and examined in concert with Dr. Pires. In agreement with the documented findings as noted in the resident documentation with any exceptions or additions as noted here. Improving abdominal pain diffusely, controlled on current PO pain medication regimen. Tolerating POI well. On examination, S1/S2 nl RRR no MCG. CTAB. Abd diffusely tender worse epigastrically but overal. improved. BS+ve Acute pancreatitis - approaching resolution, off IVF and tolerating well. Home with SL ondansetron, PO pain control and f/u with pancreatitis specialist in [place] Else see resident documentation as noted. Resident Activity Tracking Resident Involvement: Resident Care Provided Care Provided: [facility]
--- NOTE | 2020-03-28 17:35 | Hospitalist Progress Note ---
Date of Service March 28, 2020 Assessment & Plan (1) Acute pancreatitis: Ms. Knott is an 79 y/o F with history of pancreatitis x2 who presented to [facility] ED on 03/24/2020 with epigastric pain secondary to acute pancreatitis. Acute Pancreatitis, Resolving - 03/24/20 CT abd/pelv w/o contrast: Moderate acute pancreatitis. No pancreatic or biliary ductal dilation identified. - hx of appendectomy. No gallstones on imaging. - no hx of alcohol abuse. - suspect idiopathic in nature - was started at NPO, LR rate 125 cc/hr q8h, zofran IV prn for nausea, morphine prn for pain control. - Patient did well in the hospital, pain was controlled with IV morphine, nausea was controlled with scheduled Zofran IV - Started liquid diet on 03/26, advanced to low-fat diet on 03/27, patient did well with diet and nausea continued to be controlled - Pain continued to be well-controlled with transition to Oxycodone 5 mg PO on 03/27 - IV fluids discontinued on 03/28 AM - patient was going to be discharged on 03/28 in good, stable condition with Zofran 4 mg ODT Q4H PRN for nausea and Oxycodone 5 mg PO Q6H PRN for pain, but would like to stay one more night - she will follow up with her PCP after discharge Major Depressive Episode - patient reports decreased appetite for at least one week, accompanied by depressed mood, anxiety about her family issues, sadness about the pandemic, anhedonia, decreased energy, blunted affect and psychomotor retardation - decreased appetite likely due to underlying depression, unlikely to be due to pancreatitis - would recommend close follow-up with PCP in [place], where patient lives, after discharge - would recommend anti-depressant such as Mirtazepine for combined sleep and anti-depressant effects Hypertensive without history of HTN - mostly 150s-160s / 80s - likely from IVF in context of elderly patient - follow clinically while hospitalized for improvement, now that patient is off of IVFs - follow up with PCP after discharge FEN/GI: Low fat diet DVT Prophylaxis: SQ Heparin Code Status: Full Code Disposition: med/surg, tentative discharge planned for tomorrow morning - patient's brother will take her home Admission and Anticipated Discharge Date Admission Date: March 24, 2020 Supervising Physician Co-Signing Physician Notes Attending attestation Pt seen and examined in concert with Dr. Pires. In agreement with the documented findings as noted in the resident documentation with any exceptions or additions as noted here. Improving abdominal pain diffusely, controlled on current PO pain medication regimen. Tolerating POI well. On examination, S1/S2 nl RRR no MCG. CTAB. Abd diffusely tender worse epigastrically but overal. improved. BS+ve Acute pancreatitis - approaching resolution, off IVF and tolerating well. Continue SL ondansetron, PO pain control and f/u with pancreatitis specialist in [place] Else see resident documentation as noted. Subjective ~0900: No acute events overnight. Abdominal pain improved and controlled with only Oxycodone 5 mg PO x1 overnight. Tolerated low fat diet for dinner yesterday and breakfast today but reports decreased appetite. Denies fever/chills, chest pain, shortness of breath, abdominal pain, N/V, LE swelling. ~1645: Went to re-evaluate patient prior to discharge, as I received message from patient's nurse that she barely ate any lunch. On evaluation of the patient, she has blunted, depressed affect and reports that she has had depressed mood, anhedonia, decreased appetite, increased worry about family issues, and sadness about the pandemic for at least one week, prior to onset of abdominal pain. Denies SI/HI. Denies abdominal pain, N/V. Reports that she would like to stay another night. I spoke to the patient and her brother, who lives in [facility] and who is her transportation from the hospital, about the course of the patient's pancreatitis. I explained that her ongoing decreased appetite is less likely from pancreatitis and more likely due to depression. The patient would still like to stay the night and will try to eat more for dinner and for breakfast tomorrow. Review of Systems Constitutional: as per Subjective / HPI; no fever and no chills Respiratory: as per Subjective / HPI; no cough Cardiovascular: as per Subjective / HPI; no palpitations and no edema Gastrointestinal: as per Subjective / HPI Physical Exam Physical Exam: Constitutional WD/WN, vitals as above Respiratory normal respiratory effort, lungs clear to auscultation Cardiovascular RRR, no murmur, no edema Gastrointestinal (Abdomen) normal bowel sounds, soft, nontender, no hepatosplenomegaly Musculoskeletal no cyanosis or clubbing, extremities motor strength 5/5 Skin no rashes, warm and dry Psych blunted, depressed affect, psychomotor retardation Results & Data Results & Data ([facility]) Vital Signs (Past 12 Hours) Vital Signs Temp Pulse Pulse Pulse Resp BP BP 03/28/20 14:48 36.9 C 72 18 166/81 H 03/28/20 13:53 37.1 C 84 85 79 18 165/85 H 164/90 H 03/28/20 11:15 37.1 C 79 18 165/85 H 03/28/20 07:16 36.9 C 78 18 168/85 H Pulse Ox 03/28/20 14:48 93 03/28/20 13:53 95 03/28/20 11:15 95 03/28/20 07:16 93 Resident Activity Tracking Resident Involvement: Resident Care Provided Care Provided: Adult Hospital Medicine (1) Acute pancreatitis Acute pancreatitis complication: unspecified Pancreatitis type: unspecified pancreatitis type Qualified Code(s): K85.90 - Acute pancreatitis without necrosis or infection, unspecified
[2020-03-29] MEDS: ACETAMINOPHEN 325 MG TAB PO SCH (05:49)
[2020-03-29] MEDS: HEPARIN SOD 5,000 UNIT/0.5 ML VIAL SQ SCH (05:50)
[2020-03-29] MEDS: oxyCODONE HCL SOLN 5 MG/5 ML UDC PO PRN (08:13)
[2020-03-29 08:40] LABS: Basophils # (auto) 0.01 K/uL (0-0.2); Basophils % (auto) 0.1 %; Eosinophils # (auto) 0.15 K/uL (0-0.5); Eosinophils % (auto) 1.2 %; Hematocrit (blood only) 34.4 % (37-47); Hemoglobin 11.8 g/dL (12.0-16.0); Immature Granulocytes # (auto) 0.06 K/uL (0.00-0.02); Immature Granulocytes % (auto) 0.5 %; Lymphocytes % (auto) 10.4 %; Mean Corpuscular Hemoglobin 28.9 pg (25-34); Mean Corpuscular Volume 84.3 fL (80-100); Mean Platelet Volume 11.3 fL (7.4-10.4); Monocytes # (auto) 0.92 K/uL (0.11-0.59); Monocytes % (auto) 7.4 %; Neutrophils # (auto) 10.04 K/uL (1.4-6.5); Neutrophils % (auto) 80.4 %; Platelet Count 177 K/uL (130-400); RDW Coefficient of Variation 14.3 % (11.5-14.5); RDW Standard Deviation 44.2 fL (36.4-46.3); Red Blood Count 4.08 M/uL (4.2-5.4); White Blood Count 12.48 K/uL (4.8-10.8)
[2020-03-29 08:56] LABS: BUN Creatinine Ratio 20.5 (10-20); Calcium 8.8 mg/dl (8.5-10.1); Creatinine Clr Calc Pharmacy 89.1 ml/min; Potassium 3.1 mmol/L (3.5-5.1)
[2020-03-29 09:03] LABS: Mean Corpuscular Hgb Conc 34.3 g/dL (32-36)
[2020-03-29] MEDS: PANTOprazole 40 MG in SYRINGE 0 ML IV SCH (09:10)
[2020-03-29] MEDS ORDERED: POTASSIUM CHLORIDE CRTAB 20 MEQ TABCR PO STA (09:58)
--- NOTE | 2020-03-29 12:46 | Discharge Summary ---
Date of Service March 29, 2020 Admission HPI Per Admitting Provider The patient is a 79 yo female with h/o of 2 bouts of pancreatitis in the past presents to the ED with epigastric pain. \Patient reports this pain began this AM and was 10/10. it was sharp, radiated to the back. The pain did not subside which prompted her to come to the ER. In the ER, her pain improved to a 7/10, as she received IV fluid. Patient is currently nauseous. Patient is traveling from [place] to visit her brother who lives in [place] Admission Exam Per Admitting Provider Constitutional: WD/WN, vitals as above well developed Eyes: PERRL, conjunctivae normal, anicteric sclerae ENMT: external ear and nose normal, oropharynx normal Neck: trachea midline, no thyromegaly Respiratory: normal respiratory effort, lungs clear to auscultation Cardiovascular: RRR, no murmur, no edema Gastrointestinal (Abdomen): Inspection/Auscultation: abdomen normal to inspection and normal bowel sounds Percussion/Palpation: + abdomen tender (epigastric region) and abdomen soft Musculoskeletal: no cyanosis or clubbing, extremities motor strength 5/5 Skin: no rashes, warm and dry Neurologic: PERRL, EOMI, accommodation nl, no face palsy, no dysarthria Psychiatric: A+Ox3, euthymic affect Lymphatic: no cervical or axillary lymphadenopathy Principal Diagnosis Pancreatitis Discharge Exam General: Alert, oriented. No acute distress sitting up in bed Skin: No noted rashes or bruises Psych: Appropriate mood and affect Neuro: No gross deficits HEENT: NC/AT Chest: Nontender to palpation. CV: RRR, Normal s1, s2. No murmurs appreciated Resp: Breath sounds clear bilaterally, no increased effort of breathing. Abdomen: Soft, nontender, nondistended. No guarding. Extremities: No edema in lower extremities bilaterally. Discharge Data Allergies Allergy/AdvReac Type Severity Reaction Status Date / Time No Known Allergies Allergy Unverified 03/24/20 17:31 Consultations 03/24/20 17:49 ED Decision to Admit Stat Ordered Studies 03/24/20 16:26 CT abd pelvis wo con Stat Hospital Course (1) Acute pancreatitis: Ms. Knott is an 79 y/o F with history of pancreatitis x2 who presented to [facility] ED on 03/24/2020 with epigastric pain secondary to acute pancreatitis. Discharged on 03/29/2020. Acute Pancreatitis - 03/24/20 CT abd/pelv w/o contrast: Moderate acute pancreatitis. No pancreatic or biliary ductal dilation identified. - gallbladder present with no gallstones on imaging. - no hx of alcohol abuse. -Triglycerides WNL - suspect idiopathic in nature - was started at NPO, LR rate 125 cc/hr, zofran IV prn for nausea, morphine prn for pain control. - Patient did well in the hospital, pain was controlled with IV morphine, nausea was controlled with scheduled Zofran IV - Started liquid diet on 03/26, advanced to low-fat diet on 03/27, patient did well with diet and nausea continued to be controlled - Pain continued to be well-controlled with transition to Oxycodone 5 mg PO on 03/27 - IV fluids discontinued on 03/28 AM - patient discharged in stable condition with Zofran 4 mg ODT Q4H PRN for nausea and Oxycodone 5 mg PO Q6H PRN for pain - follow up with her PCP after discharge Major Depressive Episode - patient reports decreased appetite for at least one week, accompanied by depressed mood, anxiety about her family issues, sadness about the pandemic, anhedonia, decreased energy, blunted affect and psychomotor retardation - decreased appetite likely due to underlying depression, unlikely to be due to pancreatitis - would recommend close follow-up with PCP in [place], where patient lives, after discharge - would recommend anti-depressant such as Mirtazapine for combined sleep and anti-depressant effects Hypertensive without history of HTN - mostly 150s-160s / 80s - IVF, hospital environment likely contributory - follow up with PCP after discharge Total Time Total Time Spent Total Time Spent (In Minutes): <30 Discharge Plan Discharge Items Patient Disposition: Home - Self-Care Reason For Visit: PANCREATITIS Discharge Diagnosis: Acute Pancreatitis Condition on Discharge: Good Activity: Resume your previous activity Non-emergency contact: Primary Care Provider Call non-emergency contact if: you have any medication questions, your symptoms worsen, your pain is not controlled and you have a fever Follow-up/Referrals: Ness Yu MD [Primary Care Provider] - Diet: Low Fat Addtl Attending Provider Instructions: You were admitted to [facility] on 03/24/2020 for acute pancreatitis. You were started on IV fluids and given IV pain medications for the pancreatitis, and you were also placed on temporary bowel rest without a diet. After several days, you were able to be advanced to a liquid diet, and then further advanced to a low fat diet on 03/27. You tolerated the diet well without worsening nausea, vomiting or abdominal pain. Your abdominal pain was well-controlled with IV pain medications, and we transitioned you to oral pain medications on 03/27, which you tolerated well. You will be discharged in good, stable condition today. You will be discharged with oral pain medications (Oxycodone) and oral anti-nausea medications (Zofran). You can take these medications as needed for the next several days, as your symptoms continue to improve. You should follow up with your PCP after discharge. Pending Studies at Discharge: No Stand-Alone Forms: My [facility], Smoking Cessation Medications and DC Order Prescriptions: New ondansetron 4 mg Tablet,Disintegrating 4 mg PO Q4H PRN (Reason: nausea and vomiting) 5 Days Qty: 25 RF: 0 oxycodone 5 mg capsule 5 mg PO Q6H PRN (Reason: pain) Qty: 14 RF: 0 Continued aspirin [Aspir-81] 81 mg Tablet,Delayed Release (Dr/Ec) 81 mg PO DAILY RF: 0 acetaminophen [Tylenol Extra Strength] 500 mg Tablet 1,000 mg PO Q6H PRN (Reason: Pain) RF: 0 Discharge Orders: Discharge Order (Routine); Ordered 03/29/20 Ordered By: Alanna Peoples Admission Data Admit Date/Time: 03/24/20 20:50 Attending Provider: Leon Sanchez Admit Provider: Kelly Greenwood Primary Care Provider: Ness Yu Other Providers: Flavio Acosta Christophe R Other Interventions: Discharge Summary Assessment (RN) Last Done: 03/29/20 13:09 Supervising Physician Co-Signing Physician Notes I personally examined the patient and verified all ruelas points of history and exam, discussed case, and agree with decision making with Dr Peoples feeling better eating well ready to go. has pancreas specialist back home she has seen in the past - rec'd folllow up with them after this episode as well. vitals noted nad heent nc at mmm breathing unlabored no accessory muscles sgood effort skin no rashes no pallor or icterus neuro no focal deficits acute recurrent idiopathic pancreatitis -better, stable for home -f/u w PCP and pancreas specialist otherwise as above Resident Activity Tracking Resident Involvement: Resident Care Provided Care Provided: Adult Hospital Medicine
--- NOTE | 2020-03-29 18:45 | Billing Data ---
Date of Service March 29, 2020 Coding Level of Care Code D/C Day Management <30 mins
== END 2020-03-29 14:10 | disposition home or self-care (01) | DRG 440 ==
LOC: ED 15:48 → SUATTDRO 20:50 → 2N 20:50